=== PATIENT | male | born 1995 | race Two or more races ===

== ENCOUNTER 2017-05-12 16:58 | Emergency (ER) | payer SELFPAY ==
[~2017-05-12] VITALS: Ht 165.1 cm; Wt 63.0 kg
--- NOTE | ~2017-05-12 | CR262 ---
[facility] A Service of [facility] RADIOLOGY TEXT RESULTS PATIENT: PAULINA IZAGUIRRE LOCATION: [place] : [birth year] UNIT #: [id number] AGE: [address]: MEEK WAGNER APRN SEX: M ORDER DR: [id number] [place], [place] [address] [id number] MR#: [id number] Acc #: [id number] NAME: PAULINA IZAGUIRRE : 1995 SEX: M STUDY DATE/TIME: 05/12/2017 17:34 UNIT: [facility] ROOM: STUDY DESCRIPTION: CR Toe 2 Views Great Lt Attending Physician: Meek Wagner Aprn Ordering Physician: Meek Wagner Aprn Primary Care Physician: No Primary Care Physician MEDICAL IMAGING REPORT This report is preliminary unless electronic signature is present EXAM Left great toe 05/12/2017 HISTORY 32-year-old male with left great toe pain after a lawnmower blade struck toe today. COMPARISON None. FINDINGS 3 views of the left great toe demonstrate a comminuted and mildly displaced crush fracture involving the mid shaft and tuft of the first distal phalanx. The lateral projection demonstrates some questionable articular surface irregularity at the interphalangeal joint. Soft tissue swelling of the great toe noted. No radiopaque foreign bodies. IMPRESSION Comminuted and mildly displaced crush fracture involving the mid shaft and distal tuft of the first distal phalanx. There is some questionable articular surface disruption on the lateral projection. No dislocation. Dictated by... Kyle Cat M.D. THIS IS AN ELECTRONICALLY VERIFIED REPORT Kyle Cat M.D. at 05/13/2017 3:14 PM ESTUARDO/susan TD: 05/13/2017 07:50 JOB #: [id number] MEDICAL IMAGING REPORT [facility] A Service [facility] RADIOLOGY TEXT RESULTS PATIENT: PAULINA [facility]AGUIRRE [id number] [birth year] UNIT #: [id number] AGE: [address]: MEEK WAGNER APRN SEX: M ORDER DR: Page 1 of 1 COPY
== END 2017-05-12 20:42 | disposition home or self-care (01) ==
LOC: CED 16:58 → CFTX 16:58
DX: S92.422B Displaced fracture of distal phalanx of left great toe, initial encounter for open fracture (principal); W22.8XXA Striking against or struck by other objects, initial encounter; Y92.009 Unspecified place in unspecified non-institutional (private) residence as the place of occurrence of the external cause; Z23 Encounter for immunization
CPT/HCPCS: 29540; 73660; 90471; 90715; 96365; 99284